=== PATIENT | male | born 1960 | race Caucasian/White ===

== ENCOUNTER 2018-08-19 04:06 | Emergency (ER) | payer SELFPAY ==
[~2018-08-19] VITALS: Ht 175.3 cm; Wt 74.8 kg
[2018-08-19 04:08] VITALS: BP_SYST 132
[2018-08-19 04:34] LABS: HEMATOCRIT 34.8 % (36-54); HEMOGLOBIN 11.6 g/dL (14.0-18.0); MEAN CORPUSCULAR HEMOGLOBIN 28 pg (27-31); MEAN CORPUSCULAR HGB CONC 33 % (32-36); MEAN CORPUSCULAR VOLUME 83 fL (79.0-98.0); PLATELET COUNT (AUTO) 391 K/uL (130-430); RED BLOOD CELL COUNT(AUTO) 4.21 MIL/uL (4.2-6.2); RED CELL DISTRIBUTION WIDTH 14.3 % (9.0-15.0); WHITE BLOOD COUNT (AUTO) 15.3 K/uL (4.8-10.8)
[2018-08-19] MEDS ORDERED: DIVA500T7 PO (04:34)
[2018-08-19] MEDS ORDERED: GLU850 PO (04:34)
[2018-08-19] MEDS ORDERED: GLIP-214 PO (04:34)
[2018-08-19] MEDS ORDERED: ARIP20TA4 PO (04:34)
[2018-08-19] MEDS ORDERED: CLON1TAB5 PO (04:34)
[2018-08-19] MEDS ORDERED: HYDR-551 PO (04:34)
[2018-08-19 04:57] LABS: BILIRUBIN,URINE NEGATIVE (NEGATIVE); BLOOD, URINE 3+ (NEGATIVE); CLARITY/URINE CLEAR (CLEAR); COLOR,URINE YELLOW (YELLOW); GLUCOSE,URINE 3+ (NEGATIVE); KETONES,URINE NEGATIVE (NEGATIVE); LEUKOCYTE ESTERASE ,URINE NEGATIVE (NEGATIVE); NITRITE, URINE NEGATIVE (NEGATIVE); PROTEIN URINE NEGATIVE (NEGATIVE)
[2018-08-19 05:02] LABS: BACTERIA,URINE FEW /HPF (None Seen); RBC,URINE 20-50 /HPF (0-3); WBC,URINE 0-3 /HPF (0-3)
[2018-08-19 05:07] LABS: BARBITURATE, URINE NEGATIVE (NEG <=200); CANNABINOID, URINE POSITIVE (NEG <=50); URINE AMPHETAMINE NEGATIVE (NEG <=500)
[2018-08-19 05:08] LABS: BENZODIAZEPINE, URINE NEGATIVE (NEG <=150); COCAINE, URINE NEGATIVE (NEG <=150); METHAMPHETAMINES SCREEN,URINE NEGATIVE (NEG <=500); OPIATE, URINE NEGATIVE (NEG <=100); PHENCYCLIDINE SCREEN,URINE NEGATIVE (NEG <=25); UR TRICYCLIC ANTIDEPRESSANTS NEGATIVE (NEG <=300); URINE METHADONE NEGATIVE (NEG <=200); URINE OXYCODONE SCREEN NEGATIVE (NEG <=100); URINE PROPOXYPHENE SCREEN NEGATIVE (NEG <=300)
[2018-08-19 05:34] LABS: CALCIUM 8.6 mg/dL (8.4-11.0); CREATININE 0.93 mg/dL (0.55-1.30); POTASSIUM 4.1 mmol/L (3.5-5.1)
[2018-08-19 05:38] LABS: ATYPICAL LYMPHOCYTES % 0 % (0-0); BAND % (MANUAL) 3 % (0-6); LYMPHOCYTES % (MANUAL) 12 % (20-46)
[2018-08-19 05:39] LABS: BASOPHILS % (MANUAL) 0 % (0-2); EOSINOPHILS % (MANUAL) 2 % (0-7); METAMYELOCYTES % 2 % (0-0); MONOCYTES % (MANUAL) 6 % (0-11); MYELOCYTES % 3 % (0-0)
[2018-08-19 05:41] LABS: ALBUMIN 2.7 g/dL (3.4-4.8); TOTAL BILIRUBIN 0.3 mg/dL (0.0-1.0)
[2018-08-19 07:18] LABS: ACETAMINOPHEN < 1 ug/mL (1-30)
[2018-08-19 07:47] LABS: ALCOHOL, BLOOD < 3 mg/dL (<10); VALPROIC ACID 6 ug/mL (50-100)
== END 2018-08-19 05:50 | disposition left against medical advice (07) ==
LOC: SED 04:06
DX: E11.65 Type 2 diabetes mellitus with hyperglycemia (principal); F32.9 Major depressive disorder, single episode, unspecified; F17.200 Nicotine dependence, unspecified, uncomplicated; Z88.1 Allergy status to other antibiotic agents; Z79.899 Other long term (current) drug therapy
CPT/HCPCS: 36415; 70450; 80048; 80053; 80164; 80307; 81000; 85007; 85027; 99284; G0480; G0481; G0482; J7030

== ENCOUNTER 2018-08-19 09:35 | Inpatient (IN) | payer MEDICARE ==
[2018-08-19] VITALS (13 sets, daily range): BP systolic 105–156
[~2018-08-19] VITALS: Ht 170.2 cm; Wt 74.8 kg
[~2018-08-19 09:35] MED LIST: ARIP20TA4 PO; CLON1TAB5 PO; DIVA500T7 PO; GLIP-214 PO; GLU850 PO; HYDR-551 PO
[2018-08-19] MEDS ORDERED: NACL 0.9% 1,000 ML IV ONE ×2 (09:40→12:30)
[2018-08-19] MEDS ORDERED: INSULIN REGULAR, HUMAN 10 UNITS/0.1 ML INJ IVP ONE (10:15)
[2018-08-19 10:36] LABS: BASOPHILS % (AUTO) 0.2 % (0.0-2.0); EOSINOPHILS # (AUTO) 0.2 K/uL (0.0-0.4); HEMATOCRIT 35.2 % (36-54); HEMOGLOBIN 11.7 g/dL (14.0-18.0); LYMPHOCYTES # (AUTO) 1.2 K/uL (1.0-5.5); LYMPHOCYTES % (AUTO) 7.3 % (20.5-51.5); MEAN CORPUSCULAR HEMOGLOBIN 28 pg (27-31); MEAN CORPUSCULAR HGB CONC 33 % (32-36); MEAN CORPUSCULAR VOLUME 83 fL (79.0-98.0); MONOCYTES # (AUTO) 1.8 K/uL (0.0-1.0); MONOCYTES % (AUTO) 10.8 % (1.7-9.3); NEUTROPHILS # (AUTO) 13.7 K/uL (1.8-7.7); NEUTROPHILS % (AUTO) 80.7 % (40.0-70.0); PLATELET COUNT (AUTO) 450 K/uL (130-430); RED BLOOD CELL COUNT(AUTO) 4.26 MIL/uL (4.2-6.2); RED CELL DISTRIBUTION WIDTH 14.5 % (9.0-15.0); WHITE BLOOD COUNT (AUTO) 16.9 K/uL (4.8-10.8)
[2018-08-19 10:50] LABS: ANION GAP 11 (5-15); CALCIUM 8.3 mg/dL (8.4-11.0); CHLORIDE 96 mmol/L (98-107); POTASSIUM 4.2 mmol/L (3.5-5.1); PROTHROMBIN TIME 10.2 SECS (9.5-12.5); SODIUM SERUM 130 mmol/L (136-145); UREA NITROGEN, BLOOD 20 mg/dL (8-21)
[2018-08-19 10:55] LABS: ALANINE AMINOTRANSFERASE 37 U/L (12-78); ALBUMIN 2.6 g/dL (3.4-4.8); AMYLASE 19 U/L (0-100); ASPARTATE AMINOTRANSFERASE 18 U/L (10-37); LIPASE 163 U/L (73-393); TOTAL BILIRUBIN 0.4 mg/dL (0.0-1.0)
[2018-08-19 10:57] LABS: GLUCOSE 429 mg/dL (70-99)
[2018-08-19 10:58] LABS: GFR AFRICAN AMERICAN 99 mL/min (>90)
[2018-08-19 11:12] LABS: ALCOHOL, BLOOD < 3 mg/dL (<10)
[2018-08-19] MEDS: KCL 20 mEq in NS 1000 mL 1,000 ML IV SCH (12:22)
[2018-08-19 12:32] LABS: BILIRUBIN,URINE NEGATIVE (NEGATIVE); BLOOD, URINE 2+ (NEGATIVE); CLARITY/URINE CLEAR (CLEAR); COLOR,URINE YELLOW (YELLOW); GLUCOSE,URINE 3+ (NEGATIVE); KETONES,URINE NEGATIVE (NEGATIVE); LEUKOCYTE ESTERASE ,URINE NEGATIVE (NEGATIVE); NITRITE, URINE NEGATIVE (NEGATIVE); PROTEIN URINE NEGATIVE (NEGATIVE); UROBILINOGEN,URINE 0.2 (0.2-1.0)
[2018-08-19 12:53] LABS: BARBITURATE, URINE NEGATIVE (NEG <=200); BENZODIAZEPINE, URINE NEGATIVE (NEG <=150); CANNABINOID, URINE POSITIVE (NEG <=50); COCAINE, URINE NEGATIVE (NEG <=150); METHAMPHETAMINES SCREEN,URINE NEGATIVE (NEG <=500); OPIATE, URINE NEGATIVE (NEG <=100); PHENCYCLIDINE SCREEN,URINE NEGATIVE (NEG <=25); UR TRICYCLIC ANTIDEPRESSANTS NEGATIVE (NEG <=300); URINE AMPHETAMINE NEGATIVE (NEG <=500); URINE METHADONE NEGATIVE (NEG <=200); URINE OXYCODONE SCREEN NEGATIVE (NEG <=100); URINE PROPOXYPHENE SCREEN NEGATIVE (NEG <=300)
[2018-08-19 13:04] LABS: WBC,URINE 0-3 /HPF (0-3)
[2018-08-19 13:05] LABS: BACTERIA,URINE FEW /HPF (None Seen); MUCUS,URINE 1+ /LPF (None Seen)
[2018-08-19] MEDS ORDERED: TAMSULOSIN HCL 0.4 MG CAP PO ONE (14:15)
[2018-08-19] MEDS ORDERED: HYDROcodone/ACETAMIN 7.5-325 MG TAB PO SCH (14:15)
[2018-08-19] MEDS ORDERED: chlordiazePOXIDE HCL 25 MG CAPSULE PO PRN (14:15)
[2018-08-19] MEDS ORDERED: ENOXAPARIN SODIUM 40 MG/0.4 ML SYRINGE SUBCUT ONE (14:30)
[2018-08-19] MEDS: DIVALPROEX SODIUM 500 MG TABLET( DEPAKOTE) PO SCH ×2 (14:46→21:24)
[2018-08-19] MEDS ORDERED: HALOPERIDOL LACTATE 5 MG/ML VIAL IM ONE (15:00)
[2018-08-19] MEDS ORDERED: HALOPERIDOL LACTATE 5 MG/ML VIAL ONE (15:05)
[2018-08-19] MEDS ORDERED: DIPHENHYDRAMINE INJ 50 MG/ML VIAL ONE ×2 (15:12→15:17)
[2018-08-19] MEDS ORDERED: LORazepam 2 MG/ML VIAL ONE (15:14)
[2018-08-19] MEDS: INSULIN REGULAR, HUMAN 100 UNITS/ML, 10 ML VIAL (novoLIN R) SUBCUT PRN ×2 (17:50→21:30)
[2018-08-19] MEDS: clonazePAM 0.5 MG TABLET PO SCH (21:23)
[2018-08-19] MEDS: glipiZIDE XL 5 MG TAB ( GLUCOTROL XL) PO SCH (21:24)
[2018-08-20] VITALS (16 sets, daily range): BP systolic 101–146
[2018-08-20] MEDS: KCL 20 mEq in NS 1000 mL 1,000 ML IV SCH ×2 (00:37→08:00)
[2018-08-20] MEDS: INSULIN REGULAR, HUMAN 100 UNITS/ML, 10 ML VIAL (novoLIN R) SUBCUT PRN (06:53)
[2018-08-20 06:55] LABS: CALCIUM 7.6 mg/dL (8.4-11.0); CREATININE 0.84 mg/dL (0.55-1.30); PHOSPHORUS 4.5 mg/dL (2.7-4.5); POTASSIUM 3.9 mmol/L (3.5-5.1)
[2018-08-20 07:32] LABS: BASOPHILS # (AUTO) 0.1 K/uL (0.0-0.2); BASOPHILS % (AUTO) 0.5 % (0.0-2.0); EOSINOPHILS # (AUTO) 0.5 K/uL (0.0-0.4); EOSINOPHILS % (AUTO) 3.3 % (0.0-4.0); HEMATOCRIT 31.9 % (36-54); HEMOGLOBIN 10.7 g/dL (14.0-18.0); LYMPHOCYTES # (AUTO) 1.8 K/uL (1.0-5.5); LYMPHOCYTES % (AUTO) 11.7 % (20.5-51.5); MEAN CORPUSCULAR HEMOGLOBIN 28 pg (27-31); MEAN CORPUSCULAR HGB CONC 34 % (32-36); MEAN CORPUSCULAR VOLUME 83 fL (79.0-98.0); MONOCYTES # (AUTO) 1.5 K/uL (0.0-1.0); MONOCYTES % (AUTO) 9.5 % (1.7-9.3); NEUTROPHILS # (AUTO) 11.6 K/uL (1.8-7.7); PLATELET COUNT (AUTO) 424 K/uL (130-430); RED BLOOD CELL COUNT(AUTO) 3.85 MIL/uL (4.2-6.2); RED CELL DISTRIBUTION WIDTH 14.2 % (9.0-15.0); WHITE BLOOD COUNT (AUTO) 15.5 K/uL (4.8-10.8)
[2018-08-20] MEDS: clonazePAM 0.5 MG TABLET PO SCH (07:59)
[2018-08-20] MEDS: glipiZIDE XL 5 MG TAB ( GLUCOTROL XL) PO SCH (08:01)
[2018-08-20] MEDS: ENOXAPARIN SODIUM 40 MG/0.4 ML SYRINGE SUBCUT SCH ×2 (08:02→08:09)
[2018-08-20] MEDS: DIVALPROEX SODIUM 500 MG TABLET( DEPAKOTE) PO SCH (08:09)
[2018-08-20] MEDS ORDERED: ARIPiprazole 5 MG TAB PO SCH (09:00)
[2018-08-20] MEDS ORDERED: FOLIC ACID 1 MG TABLET PO SCH (09:00)
[2018-08-20] MEDS ORDERED: THIAMINE HCL 100 MG TABLET GT SCH (09:00)
[2018-08-20] MEDS ORDERED: TAMSULOSIN HCL 0.4 MG CAP PO SCH (09:00)
[2018-08-20] MEDS ORDERED: HALOPERIDOL LACTATE 5 MG/ML VIAL IM PRN (10:00)
[2018-08-20] MEDS ORDERED: LEVOFLOXACIN 500 MG/D5W 100 ML IV SCH (12:00)
[2018-08-20] MEDS: LORazepam 2 MG/ML VIAL IVP PRN ×2 (13:55→14:18)
[2018-08-20] MEDS ORDERED: HALOPERIDOL LACTATE 5 MG/ML VIAL IM ONE (15:15)
[2018-08-20] MEDS ORDERED: DIPHENHYDRAMINE INJ 50 MG/ML VIAL IVP ONE (15:15)
[2018-08-20] MEDS ORDERED: LORazepam 2 MG/ML VIAL IVP ONE (15:15)
[2018-08-20] MEDS ORDERED: HALOPERIDOL LACTATE 5 MG/ML VIAL ONE (15:28)
[2018-08-20] MEDS ORDERED: LORazepam 2 MG/ML VIAL ONE (15:37)
[2018-08-20] MEDS ORDERED: DIPHENHYDRAMINE INJ 50 MG/ML VIAL ONE (15:38)
[2018-08-20] MEDS ORDERED: DEXTROSE 50% JECT 50 ML DISP.SYRIN IVP PRN (18:15)
[2018-08-20] MEDS ORDERED: NICOTINE 21 MG/24 HR PATCH.TD24 TD SCH (21:00)
[2018-08-20] MEDS ORDERED: LEVOFLOXACIN 500 MG TABLET PO SCH (21:00)
[2018-08-20] MEDS ORDERED: glipiZIDE XL 5 MG TAB ( GLUCOTROL XL) PO SCH (21:00)
== END 2018-08-20 18:40 | disposition left against medical advice (07) | DRG 917 ==
LOC: SED 09:35 → SIC 11:48
PROVIDERS: ADMIT Family Medicine; ATTEND Family Medicine
DX: T40.7X1A Poisoning by cannabis (derivatives), accidental (unintentional), initial encounter (principal); G92 Toxic encephalopathy; R45.851 Suicidal ideations; E87.1 Hypo-osmolality and hyponatremia; F31.30 Bipolar disorder, current episode depressed, mild or moderate severity, unspecified; T51.91XA Toxic effect of unspecified alcohol, accidental (unintentional), initial encounter; E11.65 Type 2 diabetes mellitus with hyperglycemia; F12.90 Cannabis use, unspecified, uncomplicated; F14.90 Cocaine use, unspecified, uncomplicated; F17.200 Nicotine dependence, unspecified, uncomplicated; I10 Essential (primary) hypertension; Z53.21 Procedure and treatment not carried out due to patient leaving prior to being seen by health care provider; R33.9 Retention of urine, unspecified; Z79.899 Other long term (current) drug therapy; Z88.1 Allergy status to other antibiotic agents; Y92.89 Other specified places as the place of occurrence of the external cause
CPT/HCPCS: 36415; 71045; 80048; 80053; 80307; 81000-TC; 82150-TC; 82550-TC; 82962; 83036; 83605; 83690-TC; 83735-TC; 84100-TC; 84484; 85025; 85610-TC; 85730-TC; 87040-TC; 87081; 96365; 96375; 99285; G0103; G0482; J1200; J1630; J1650; J1815; J1956; J2060; J3480